=== PATIENT | male | born 1965 | race American Indian/Alaskan Native ===

== ENCOUNTER 2018-12-17 09:20 | Emergency (ER) | payer BC ==
[2018-12-17 09:32] VITALS: BP 145/84
--- NOTE | 2018-12-17 10:15 | Emergency Department Report ---
ED General Adult HPI - General Chief complaint: Shoulder Injury Stated complaint: RT SHOULDER PAIN Time Seen by Provider: 12/17/18 10:11 Source: patient Mode of arrival: Ambulatory Limitations: No Limitations - History of Present Illness Initial comments: This is a 53-year-old man with chronic right shoulder pain without acute injury or exacerbation. He is simply here because his pain management clinic closed. -: unknown (long-term and chronic) - Related Data Previous Rx's Medication Instructions Recorded Last Taken Type Naproxen [Naprosyn] 500 mg PO BID #10 tablet 12/17/18 Unknown Rx ED Review of Systems ROS: Stated complaint: RT SHOULDER PAIN Other details as noted in HPI Comment: All other systems reviewed and negative ED Past Medical Hx - Past Medical History Additional medical history: Chronic pain - Social History Smoking Status: Current Every Day Smoker Substance Use Type: Alcohol, Marijuana - Medications Home Medications: Home Medications Medication Instructions Recorded Confirmed Last Taken Type Naproxen [Naprosyn] 500 mg PO BID #10 tablet 12/17/18 Unknown Rx ED Physical Exam - General Limitations: No Limitations - Eye Eye exam: Present: normal appearance - ENT ENT exam: Present: mucous membranes moist - Neck Neck exam: Present: normal inspection - Extremities Exam Extremities exam: Present: normal inspection, full ROM (range of motion of the right shoulder was fairly normal and without tenderness), other (no deformity) - Neurological Exam Neurological exam: Present: alert, CN II-XII intact, motor sensory deficit - Psychiatric Psychiatric exam: Present: normal affect, normal mood - Skin Skin exam: Present: warm, dry, intact, normal color. Absent: rash ED Course Vital Signs 12/17/18 09:28 Temperature 98.6 F Pulse Rate 85 Respiratory 16 Rate Blood Pressure 145/84 O2 Sat by Pulse 99 Oximetry - Reevaluation(s) Reevaluation #1: It was explained to the patient that we cannot treat chronic pain through the emergency department. He states he has an appointment with a another pain management doctor anyway. 12/17/18 10:13 Critical care attestation.: If time is entered above; I have spent that time in minutes in the direct care of this critically ill patient, excluding procedure time. ED Disposition Clinical Impression: Chronic right shoulder pain Disposition: DC-01 TO HOME OR SELFCARE Is pt being admited?: No Does the pt Need Aspirin: No Condition: Stable Instructions: Chronic Pain (ED) Prescriptions: Naproxen [Naprosyn] 500 mg PO BID #10 tablet Referrals: [facility] [Provider Group] - 3-5 Days Time of Disposition: 10:14
== END 2018-12-17 10:30 | disposition home or self-care (01) ==
LOC: ED 09:20
DX: G89.29 Other chronic pain (principal); M25.511 Pain in right shoulder; F17.200 Nicotine dependence, unspecified, uncomplicated; F12.10 Cannabis abuse, uncomplicated
CPT/HCPCS: 99281

== ENCOUNTER 2020-05-09 08:31 | Emergency (ER) | payer BC, OTHER ==
[2020-05-09 08:50] VITALS: BP 163/91
--- NOTE | 2020-05-09 08:55 | Emergency Department Report ---
ED Lower Extremity HPI - General Chief Complaint: Extremity Injury, Lower Stated Complaint: RT ANKLE INJURY Time Seen by Provider: 05/09/20 08:51 Source: patient Mode of arrival: Wheelchair Limitations: Physical Limitation - History of Present Illness Initial Comments: 55-year-old -[place] male presents to the emergency room for right ankle injury yesterday. Patient states that he was trying to avoid his puppy and stepped down in his foot when at work. Patient states that the swelling tenderness and pain. Onset/Timin -: days(s) Injury: Ankle: Right Type of Injury: eversion Place: home Severity: severe Severity scale (0 -10): 9 Improves With: immobilization Worsens With: weight bearing, movement, palpation Associated Symptoms: swelling, able to partially bear weight - Related Data Previous Rx's Medication Instructions Recorded Last Taken Type HYDROcodone/APAP 7.5-325 [[place] 1 each PO Q8HR PRN #12 tablet 05/09/20 Unknown Rx 7.5/325] Naproxen [Naprosyn TAB] 500 mg PO BID #20 tablet 05/09/20 Unknown Rx Allergies Allergy/AdvReac Type Severity Reaction Status Date / Time No Known Allergies Allergy Unverified 05/09/20 08:43 ED Review of Systems ROS: Stated complaint: RT ANKLE INJURY Other details as noted in HPI Comment: All other systems reviewed and negative ED Past Medical Hx - Past Medical History Hx Diabetes: Yes Additional medical history: Chronic pain - Surgical History Additional Surgical History: SHOULDER - Social History Smoking Status: Never Smoker Substance Use Type: Marijuana - Medications Home Medications: Home Medications Medication Instructions Recorded Confirmed Last Taken Type HYDROcodone/APAP 7.5-325 [[place] 1 each PO Q8HR PRN #12 tablet 05/09/20 Unknown Rx 7.5/325] Naproxen [Naprosyn TAB] 500 mg PO BID #20 tablet 05/09/20 Unknown Rx ED Physical Exam - General Limitations: Physical Limitation General appearance: alert, in no apparent distress - Head Head exam: Present: atraumatic, normocephalic - Eye Eye exam: Present: normal appearance - ENT ENT exam: Present: mucous membranes moist - Respiratory Respiratory exam: Absent: accessory muscle use - Expanded Lower Extremity Exam Right Hip exam: Present: full ROM Upper Leg exam: Present: normal inspection, full ROM Knee exam: Present: normal inspection, full ROM Lower Leg exam: Present: normal inspection, full ROM Ankle exam: Present: full ROM, tenderness, swelling Foot/Toe exam: Present: full ROM. Absent: tenderness, swelling, erythema Neuro vascular tendon exam: Present: no vascular compromise - Back Exam Back exam: Present: normal inspection - Neurological Exam Neurological exam: Present: alert, oriented X3 - Psychiatric Psychiatric exam: Present: normal affect, normal mood - Skin Skin exam: Present: warm, dry, intact, normal color. Absent: rash ED Course Vital Signs 05/09/20 08:48 Temperature 98.4 F Pulse Rate 85 Respiratory 18 Rate Blood Pressure 163/91 O2 Sat by Pulse 96 Oximetry ED Lower Extremity MDM - Medical Decision Making 55-year-old -[place] male presents to the emergency room for right ankle injury yesterday. Patient states that he was trying to avoid his puppy and stepped down in his foot when at work. Patient states that the swelling tenderness and pain. X-ray shows that he has a mild displaced fibular fracture. Patient be placed in a [place] splint pain medication and referral to orthopedic provider. Critical care attestation.: If time is entered above; I have spent that time in minutes in the direct care of this critically ill patient, excluding procedure time. ED Disposition Clinical Impression: Closed right fibular fracture Disposition: DC-01 TO HOME OR SELFCARE Is pt being admited?: No Does the pt Need Aspirin: No Condition: Stable Instructions: Nondisplaced Fibular Ankle Fracture Treated With Immobilization, Adult Additional Instructions: X-ray shows you have a fracture of your fibular of your right ankle. You will be placed in a splint take pain medication as needed elevate ice and follow-up with an cad application support specialist. Prescriptions: Naproxen [Naprosyn TAB] 500 mg PO BID #20 tablet HYDROcodone/APAP 7.5-325 [[place] 7.5/325] 1 each PO Q8HR PRN #12 tablet PRN Reason: Pain Referrals: PRIMARY CAREMD [Primary Care Provider] - 3-5 Days NEIL SHELLEY MD [Staff Physician] - 3-5 Days [facility] [Provider Group] - 3-5 Days Forms: Work/School Release Form(ED)
--- NOTE | 2020-05-09 09:23 | XRay Report ---
RIGHT ANKLE 2 VIEW(S) INDICATION / CLINICAL INFORMATION: Ankle injury/PAIN COMPARISON: None FINDINGS: BONES / JOINT(S): Minimally displaced, acute, distal fibular fracture. No dislocation. Fracture line extends into the tibiotalar joint, just below the expected location of the syndesmosis. No additional fractures are noted.. No significant arthritis. SOFT TISSUES: Moderate lateral ankle edema. ADDITIONAL FINDINGS: None. Signer Name: Gio Alston MD Signed: 05/09/2020 9:19 AM Workstation Name: [id number]
== END 2020-05-09 10:51 | disposition home or self-care (01) ==
LOC: ED 08:31
DX: S82.401A Unspecified fracture of shaft of right fibula, initial encounter for closed fracture (principal); M97.11XA Periprosthetic fracture around internal prosthetic right knee joint, initial encounter; E11.9 Type 2 diabetes mellitus without complications; F12.10 Cannabis abuse, uncomplicated; Z79.899 Other long term (current) drug therapy; X50.9XXA Other and unspecified overexertion or strenuous movements or postures, initial encounter; Y93.89 Activity, other specified; Y92.89 Other specified places as the place of occurrence of the external cause; Y99.8 Other external cause status
CPT/HCPCS: 99283